=== PATIENT | female | born 2000 | race Caucasian/White ===

== ENCOUNTER 2022-05-12 18:50 | Emergency (ER) | payer OTHER, SELFPAY ==
[2022-05-12 18:59] VITALS: BP 128/88; PULSE 81; RESP 18; TEMP 36.6; O2SAT 100
--- NOTE | 2022-05-12 20:18 | ED.GENADULT ---
HPI - General Adult General Chief complaint: Psychiatric Symptoms Stated complaint: Mental health issues Time Seen by Provider: 05/12/22 20:01 History of Present Illness HPI narrative: Patient is a 22-year-old female here with her mother with history of depression and anxiety, currently on Lexapro and buspirone, here for evaluation of increased episodes of crying over the past several days. Patient states that she has had several episodes of uncontrollable crying and is unsure why. She additionally feels depressed and anxious but is not suicidal or homicidal. Denies previous attempts at suicide or previous psychiatric admissions. 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 No alcohol or drug use Related Data Home Medications Medication Instructions Recorded Confirmed buspirone 7.5 mg tablet 7.5 mg PO BID 05/12/22 escitalopram oxalate 20 mg tablet 20 mg PO DAILY 05/12/22 (Lexapro) loratadine 10 mg tablet (Claritin) 10 mg PO DAILY 05/12/22 spironolactone 50 mg tablet 50 mg PO BID 05/12/22 Allergies Allergy/AdvReac Type Severity Reaction Status Date / Time No Known Allergies Allergy Verified 05/12/22 18:51 Review of Systems Review of Systems: All systems reviewed & are unremarkable except as noted in HPI and below PMFSH Social History Social History Substance use type: does not use Exam Narrative: APPEARANCE: Well appearing, no pain in distress, well-nourished. Head: Normocephalic and atraumatic. EYES: PERRLA/EOMI, conjunctivae clear NOSE: No nasal drainage EARS: External ear normal in appearance THROAT: Oropharynx is clear. Mucous membranes are moist. NECK: Supple. No adenopathy, no masses. RESPIRATORY: Airway patent, respirations nonlabored. Clear to auscultation bilaterally, no rales, rhonchi, wheezing. CARDIOVASCULAR: Regular rate and rhythm without murmurs, rubs, or gallops. ABDOMINAL: Normoactive bowel sounds. Soft, nontender, nondistended. No rebound tenderness or guarding. MUSCULOSKELETAL: Extremities are warm and well-perfused. Moves all extremities well. No edema. NEURO: Normal speech. No focal neurologic deficits. SKIN: Skin is warm and dry. No rashes. PSYCHIATRIC: Tearful, sad mood Course Vital Signs Vital signs: Vital Signs Temperature 97.8 F 05/12/22 18:59 Pulse Rate 81 02/25/23 18:59 Respiratory Rate 18 05/12/22 18:59 Blood Pressure 128/88 05/12/22 18:59 Pulse Oximetry 100 05/12/22 18:59 Oxygen Delivery Room Air 05/12/22 18:59 Temperature 97.8 F 05/12/22 18:59 Pulse Rate 81 05/12/22 18:59 Respiratory Rate 18 05/12/22 18:59 Blood Pressure 128/88 05/12/22 18:59 Pulse Oximetry 100 05/12/22 18:59 Oxygen Delivery Room Air 05/12/22 18:59 Medical Decision Making MDM Narrative Medical decision making narrative: 22-year-old female with history of depression and anxiety here for evaluation of increased episodes of crying over the past several days. She is tearful but nontoxic appearance. She is low risk by [place] scale and denies suicidal or homicidal ideation. Shared decision-making was used with patient and her mother who elected to not speak with the crisis counselors today which I feel is very reasonable. We will temporarily increase her BuSpar until she can see her psychiatric provider. Return precautions were discussed and she voiced understanding. Vital Signs Vital Signs: Vital Signs Temperature 97.8 F 05/12/22 18:59 Pulse Rate 81 05/12/22 18:59 Respiratory Rate 18 05/12/22 18:59 Blood Pressure 128/88 05/12/22 18:59 Pulse Oximetry 100 05/12/22 18:59 Oxygen Delivery Room Air 05/12/22 18:59 Temperature 97.8 F 05/12/22 18:59 Pulse Rate 81 05/12/22 18:59 Respiratory Rate 18 05/12/22 18:59 Blood Pressure 128/88 05/12/22 18:59 Pulse Oximetry 100 05/12/22 18:59 Oxygen Delivery Room Air 05/12/22 18:59 Discharge Plan Discharge Clinical Impression: Crying
[2022-05-12 20:50] VITALS: BP 131/83; PULSE 69; RESP 16; O2SAT 98
== END 2022-05-12 20:55 | disposition home or self-care (01) ==
PROVIDERS: Emergency Provider Physician Assistant
DX: R45.83 Excessive crying of child, adolescent or adult (principal); F32.A Depression, unspecified; F41.9 Anxiety disorder, unspecified
CPT/HCPCS: 99283